=== PATIENT | female | born 1990 | race Caucasian/White ===

== ENCOUNTER 2025-03-22 08:33 | Emergency (ER) | payer MEDICAID ==
[~2025-03-22] VITALS: Ht 165.1 cm; Wt 109.2 kg
[~2025-03-22 08:33] MED LIST: PREN-96 PO
[2025-03-22 08:35] VITALS: BP 107/61; PULSE 89; RESP 18; TEMP 98.8; O2SAT 98
--- NOTE | 2025-03-22 09:17 | ED.PDOC ---
History of Present Illness HPI Comments 34-year-old female presents to the ER with spouse and no prior medical history associated with a chief complaint of abnormal labs. Patient reports on going is [facility] yesterday for facial swelling, lightheadedness, headache, N/V, and a recent syncope last week for which all subsided. Patient was informed by the blood donation,earlier today the her hemoglobin was 9.0 and to go to the ER. Denies chills, fever, N/V/D, SOB, CP. No other associated symptoms, modifiers, recent injuries or sick contacts present at this time. Chief Complaint: Abnormal LAB's Time Seen by MD: 09:15 Primary Care Provider: EZEKIEL Garcia Notes: Nurses Notes, Medications, Allergies Allergies: Coded Allergies: NO KNOWN ALLERGIES (Unverified , 10/21/09) Home Meds Reported Medications Vit W/ Ferrous Fumara ( One Daily) Daily Tab, 1 TAB PO DAILY, #90 TAB 3 Refills 02/18/17 Information Source: Patient, Spouse Mode of Arrival: Ambulatory Severity: Moderate Timing: Days Duration: Since onset, Days Prehospital treatment: None Past Medical History PAST MEDICAL HISTORY: Denies Surgical History: Denies all surgeries VISUAL MERCHANDISING MANAGER History: No Pertinent VISUAL MERCHANDISING MANAGER History Family History Family History: Reviewed,noncontributory to illness, Unknown Social History Smoker: Non-Smoker Alcohol: Denies ETOH Use Drugs: Denies Drug Use Lives In: Home Constitutional: reports: others (Patient came in due from her hemoglobin being at 9.0); denies: chills, diaphoresis, fatigue, fever, malaise, sweats, weakness EENTM: denies: blurred vision, double vision, ear bleeding, ear discharge, ear drainage, ear pain, ear ringing, eye pain, eye redness, hearing loss, mouth pain, mouth swelling, nasal discharge, nose bleeding, nose congestion, nose pain, photophobia, tearing, throat pain, throat swelling, voice changes, others Respiratory: denies: cough, hemoptysis, orthopnea, SOB at rest, shortness of breath, SOB with excertion, stridor, wheezing, others Cardiovascular: denies: chest pain, dizzy spells, diaphoresis, Dyspnea on exertion, edema, irregular heart beat, left arm pain, lightheadedness, palpitations, PND, syncope, others Gastrointestinal: denies: abdomen distended, abdominal pain, blood streaked bowels, constipated, diarrhea, dysphagia, difficulty swallowing, hematemesis, melena, nausea, poor appetite, poor fluid intake, rectal bleeding, rectal pain, vomiting, others Genitourinary: denies: abnormal vagina bleeding, burning, dyspareunia, dysuria, flank pain, frequency, hematuria, incontinence, pain, , vagina discharge, urgency, others Neurological: denies: dizziness, fainting, headache, left sided numbness, left sided weakness, numbness, paresthesia, pre-existing deficit, right sided numbness, right sided weakness, seizure, speech problems, tingling, tremors, weakness, others Musculoskeletal: denies: back pain, gout, joint pain, joint swelling, muscle pain, muscle stiffness, neck pain, others Integumetry: denies: bruises, change in color, change in hair/nails, dryness, laceration, lesions, lumps, rash, wounds, others Allergic/Immunocompromised: denies: Difficulty Healing, Frequent Infections, Hives, Itching, others Hematologic/Lymphatic: denies: anemia, blood clots, easy bleeding, easy bruising, swollen glands, others Endocrine: denies: excessive hunger, excessive sweating, excessive thirst, excessive urination, flushing, intolerance to cold, intolerance to heat, unexplained weight gain, unexplained weight loss, others Psychiatric: denies: anxiety, bipolar disorder, depression, hopeless, panic disorder, schizophrenia, sleepless, suicidal, others All Other Systems: Reviewed and Negative Physical Exam General Appearance: No Apparent Distress, Normal HEENT: Normal ENT Inspection, Pharynx Normal, TMs Normal Neck: Full Range of Motion, Non-Tender, Normal, Normal Inspection Respiratory: Chest Non-Tender, Lungs Clear, No Accessory Muscle Use, No Respiratory Distress, Normal Breath Sounds Cardiovascular: No Edema, No JVD, No Murmur, No Gallop, Normal Peripheral Pulses, Regular Rate/Rhythm Breast Exam: Deferred Gastrointestinal: No Organomegaly, Non Tender, No Pulsatile Mass, Normal Bowel Sounds, Soft Genitalia: Deferred Pelvic: Deferred Rectal: Deferred Extremities: No calf tenderness, Normal capillary refill, Normal inspection, Normal range of motion, Non-tender, No pedal edema Musculoskeletal : Apperance: Normal Neurologic: Alert, ribbon cutter II-XII nml as Tested, No Motor Deficits, Normal Affect, Normal Mood, No Sensory Deficits Cerebellar Function: Normal Reflexes: Normal Skin: Dry, Normal Color, Warm Lymphatic: No Adenopathy Was a procedure done? Was a procedure done?: No Differential Dx Considerations may include: Abnormal labs, elecotrolyte abnormality X-Ray, Labs, Meds, VS Vital Signs Date Time Temp Pulse Resp B/P (MAP) Pulse Ox O2 Delivery O2 Flow Rate FiO2 03/22/25 08:35 98.8 89 18 107/61 98 98.8 Lab Test 03/22/25 10:19 03/22/25 09:05 Range/Units Troponin I High Sensitivity < 3 L < 3 L </=34 ng/L White Blood Count 13.6 H 4.4-10.8 10^3/uL Red Blood Count 3.58 L 4.0-5.20 10^6/uL Hemoglobin 10.6 L 12.2-16.2 g/dL Hematocrit 31.7 L 36.0-46.0 % Mean Corpuscular Volume 88.7 80.0-100.0 fL Mean Corpuscular Hemoglobin 29.6 28.0-32.0 pg Mean Corpuscular Hemoglobin Concent 33.4 32.0-36.0 g/dL Red Cell Distribution Width 13.6 11.8-14.3 % Platelet Count 231 140-450 10^3/uL Mean Platelet Volume 8.5 6.9-10.8 fL Neutrophils (%) (Auto) 83.4 H 37.0-80.0 % Lymphocytes (%) (Auto) 10.3 10.0-50.0 % Monocytes (%) (Auto) 6.1 0.0-12.0 % Eosinophils (%) (Auto) 0.1 0.0-7.0 % Basophils (%) (Auto) 0.1 0.0-2.0 % Neutrophils # (Auto) 11.4 H 1.6-8.6 10 ^3/uL Lymphocytes # (Auto) 1.4 0.4-5.4 10 ^3/uL Monocytes # (Auto) 0.8 0-1.3 10 ^3/uL Eosinophils # (Auto) 0 0-0.8 10 ^3/uL Basophils # (Auto) 0 0-0.2 10 ^3/uL Nucleated Red Blood Cells 0.1 % Sodium Level 142 136-145 mmol/L Potassium Level 4.4 3.5-5.1 mmol/L Chloride Level 108 H 98-107 mmol/L Carbon Dioxide Level 26 20-31 mmol/L Anion Gap 8 5-15 Blood Urea Nitrogen 17 9-23 mg/dL Creatinine 0.84 0.550-1.02 mg/dL Glomerular Filtration Rate Calc 92 >90 mL/min BUN/Creatinine Ratio 20.2 H 10.0-20.0 Serum Glucose 115 H 74-106 mg/dL Calcium Level 9.0 8.7-10.4 mg/dL Time of 1ST Reevaluation: 09:45 Reevaluation 1ST: Unchanged Patient Education/Counseling: Diagnosis, Treatment, Prognosis Family Education/Counseling: No Family Present SEPSIS Sepsis Screen Date sepsis recognized/suspect: Mar 22, 2025 Time Sepsis recognized/suspect: 834 Recent Procedure: No On Antibiotic Therapy: No Respiratory Rate >20: No Heart Rate >90: No Temp<36 C (96.8 F) or >38.3 C: No SBP <90 or MAP <65 mmHG: No New Acute Mental Status Change: No Is the patient on CPAP, BIPAP,: No Physician Orders Urinalysis (03/22/25 08:47) Troponin-I Hs (03/22/25 11:47) Vital Signs Date Time Temp Pulse Resp B/P (MAP) Pulse Ox O2 Delivery O2 Flow Rate FiO2 03/22/25 08:35 98.8 89 18 107/61 98 98.8 Laboratory Tests Test 03/22/25 09:05 White Blood Count 13.6 10^3/uL (4.4-10.8) H Departure 1 Departure Time of Disposition: 11:47 (Patient with likely normal labs. PAtient ama prior to having results.) Impression: Primary Impression: Abnormal laboratory test Disposition: 07 LEFT AGAINST MEDICAL ADVICE Condition: Stable Critical Care Note Critical Care Time?: No Stability Stability form required: No I personally scribed for ELVIS PÉREZ MD ([email or web address]) on 03/22/25 at 09:17. Electronically submitted by David Griffith ([email or web address]). ELVIS PÉREZ MD Mar 22, 2025 09:17
[2025-03-22 09:25] LABS: Hematocrit 31.7 % (36.0-46.0); Hemoglobin 10.6 g/dL (12.2-16.2); Mean Corpuscular Hemoglobin 29.6 pg (28.0-32.0); Mean Corpuscular Volume 88.7 fL (80.0-100.0); Nucleated Red Blood Cells % 0.1 %
[2025-03-22 09:45] LABS: Potassium 4.4 mmol/L (3.5-5.1); Sodium 142 mmol/L (136-145)
[2025-03-22 09:46] LABS: Anion Gap 8 (5-15); Calcium 9.0 mg/dL (8.7-10.4); Carbon Dioxide 26 mmol/L (20-31)
[2025-03-22 09:50] LABS: Chloride 108 mmol/L (98-107)
[2025-03-22 09:51] LABS: BUN/Creatinine Ratio 20.2 (10.0-20.0); Blood Urea Nitrogen 17 mg/dL (9-23)
[2025-03-22 09:52] LABS: Glucose 115 mg/dL (74-106)
== END 2025-03-22 11:43 | disposition left against medical advice (07) ==
LOC: ER 08:33
DX: R79.9 Abnormal finding of blood chemistry, unspecified (principal); R55 Syncope and collapse; R22.0 Localized swelling, mass and lump, head
CPT/HCPCS: 36415; 80048; 84484; 85025

== ENCOUNTER 2025-06-20 23:45 | Emergency (ER) | payer MEDICAID ==
[~2025-06-20] VITALS: Ht 165.1 cm; Wt 109.7 kg
--- NOTE | 2025-06-21 01:37 | ED.PDOC ---
History of Present Illness HPI Comments Patient is a 34-year-old female with past medical history of recurrent pancreatitis x2 who comes in due to facial swelling that has been ongoing for the past2 days and progressively worsening. According to the patient,2 days ago she noticed multiple facial puncture wounds 1 on the left cheek, on the chin and 1 on the right cheek, which progressively worsened and prompted this visit to the ER. Patient states the puncture wound on the right side went on to cause preseptal swelling, tender to palpation, erythematous. Denies having similar symptoms in the past. Notes that she completed2 weeks' course of amoxicillin today for a tooth infection. Patient's own insight is it might have been an insect bite? . Denies any pain with moving her eye, denies any visual changes. No abnormal drainage from the eye. Review of systems is all negative. Chief Complaint: Face pain Time Seen by MD: 00:55 Primary Care Provider: EZEKIEL Allergies: Coded Allergies: NO KNOWN ALLERGIES (Unverified , 10/21/09) Home Meds Active Scripts Clindamycin Hcl (Clindamycin Hcl) 300 Mg Cap, 300 MG PO QID for 7 Days, #28 CAP Prov:SHARON MORFIN RESIDENT 06/21/25 Reported Medications Vit W/ Ferrous Fumara ( One Daily) Daily Tab, 1 TAB PO DAILY, #90 TAB 3 Refills 02/18/17 Mode of Arrival: Ambulatory Severity: Mild Timing: Days Duration: Since onset Past Medical History PAST MEDICAL HISTORY: Denies Past Medical History (Contd): Pancreatitis Surgical History: Denies all surgeries Surgical History (Cont'd) Denies TELEGRAPH REPEATER TECHNICIAN History: No Pertinent TELEGRAPH REPEATER TECHNICIAN History Family History Family History: Reviewed,noncontributory to illness, Unknown Social History Smoker: Non-Smoker Alcohol: Denies ETOH Use Drugs: Denies Drug Use Lives In: Home Constitutional: denies: chills, diaphoresis, fatigue, fever, malaise, sweats, weakness, others EENTM: denies: blurred vision, double vision, ear bleeding, ear discharge, ear drainage, ear pain, ear ringing, eye pain, eye redness, hearing loss, mouth pain, mouth swelling, nasal discharge, nose bleeding, nose congestion, nose pain, photophobia, tearing, throat pain, throat swelling, voice changes, others Respiratory: denies: cough, hemoptysis, orthopnea, SOB at rest, shortness of breath, SOB with excertion, stridor, wheezing, others Cardiovascular: denies: chest pain, dizzy spells, diaphoresis, Dyspnea on exertion, edema, irregular heart beat, left arm pain, lightheadedness, palpitations, PND, syncope, others Gastrointestinal: denies: abdomen distended, abdominal pain, blood streaked bowels, constipated, diarrhea, dysphagia, difficulty swallowing, hematemesis, melena, nausea, poor appetite, poor fluid intake, rectal bleeding, rectal pain, vomiting, others Genitourinary: denies: abnormal vagina bleeding, burning, dyspareunia, dysuria, flank pain, frequency, hematuria, incontinence, pain, , vagina discharge, urgency, others Neurological: denies: dizziness, fainting, headache, left sided numbness, left sided weakness, numbness, paresthesia, pre-existing deficit, right sided numbness, right sided weakness, seizure, speech problems, tingling, tremors, weakness, others Musculoskeletal: denies: back pain, gout, joint pain, joint swelling, muscle pain, muscle stiffness, neck pain, others Integumetry: denies: bruises, change in color, change in hair/nails, dryness, laceration, lesions, lumps, rash, wounds, others Allergic/Immunocompromised: denies: Difficulty Healing, Frequent Infections, Hives, Itching, others Hematologic/Lymphatic: denies: anemia, blood clots, easy bleeding, easy bruising, swollen glands, others Endocrine: denies: excessive hunger, excessive sweating, excessive thirst, excessive urination, flushing, intolerance to cold, intolerance to heat, unexplained weight gain, unexplained weight loss, others Psychiatric: denies: anxiety, bipolar disorder, depression, hopeless, panic disorder, schizophrenia, sleepless, suicidal, others Physical Exam General Appearance: No Apparent Distress HEENT: Eye Lid (L) (Swollen, erythematous, nontender. No visual changes.), Normal ENT Inspection, PERRL/EOMI (No pain on extraocular movement), Other ( Cm scabbed wound on the left cheek. Deep seated on removed 0.5 cm wound on the chin and right cheek.) Neck: Full Range of Motion, Non-Tender, Normal Inspection Respiratory: Chest Non-Tender, Lungs Clear, No Accessory Muscle Use Cardiovascular: No JVD, No Murmur, No Gallop, Normal Peripheral Pulses, Regular Rate/Rhythm Breast Exam: Deferred Gastrointestinal: Non Tender, No Pulsatile Mass, Normal Bowel Sounds Genitalia: Deferred Pelvic: Deferred Rectal: Rectal Exam not done Extremities: No calf tenderness, Normal inspection, Normal range of motion, Non-tender, No pedal edema Neurologic: Alert, No Motor Deficits, No Sensory Deficits Cerebellar Function: Normal Reflexes: NOT DONE Skin: Dry, Normal Color Peripheral Pulses: 2+ dorsalis pedis (R), 2+ dorsalis pedis (L) Lymphatic: NOT DONE Was a procedure done? Was a procedure done?: No Differential Dx Considerations may include: Facial cellulitis X-Ray, Labs, Meds, VS Vital Signs Date Time Temp Pulse Resp B/P (MAP) Pulse Ox O2 Delivery O2 Flow Rate FiO2 06/21/25 01:54 98.0 82 16 124/72 (89) 100 98.0 06/20/25 23:47 97.8 95 18 139/69 100 97.8 Current Medications Medications (Trade) Dose Ordered Sig/Isabell Route Start Time Stop Time Status Last Admin Clindamycin HCl (Cleocin Capsule) 300 mg ONCE ONCE PO 06/21/25 01:45 06/21/25 01:46 DC 06/21/25 03:15 Time of 1ST Reevaluation: 01:40 Reevaluation 1ST: Improved Patient Education/Counseling: Diagnosis, Treatment, Prognosis, Need For Follow Up Family Education/Counseling: Diagnosis, Treatment, Prognosis, Need For Follow Up SEPSIS Sepsis Screen Date sepsis recognized/suspect: Jun 20, 2025 Time Sepsis recognized/suspect: 2351 Recent Procedure: No On Antibiotic Therapy: Yes Respiratory Rate >20: No Heart Rate >90: No Temp<36 C (96.8 F) or >38.3 C: No SBP <90 or MAP <65 mmHG: No New Acute Mental Status Change: No Is the patient on CPAP, BIPAP,: No Vital Signs Date Time Temp Pulse Resp B/P (MAP) Pulse Ox O2 Delivery O2 Flow Rate FiO2 06/21/25 01:54 98.0 82 16 124/72 (89) 100 98.0 06/20/25 23:47 97.8 95 18 139/69 100 97.8 Medications Medications Dose Ordered Sig/Isabell Route Start Time Stop Time Status Last Admin Dose Admin Clindamycin HCl 300 mg ONCE ONCE PO 06/21/25 01:45 06/21/25 01:46 DC 06/21/25 03:15 Departure 1 Departure Time of Disposition: 02:00 (Patient presenting with facial swelling consistent with uncomplicated cellulitis. Patient has normal eye examination, no pain with extraocular movement, no findings to suggest hormonal cellulitis. No reports of shortness of breath, no tongue or leg swelling, no findings concerning for airway compromise. Vital stable, exam reassuring and patient tolerating p.o.. Neuro ophthalmic exam intact. Patient was prescribed clindamycin 300 mg q.i.d. for7 days, 1st dose of 200 mg p.o. clindamycin was given in the ER. Strict return precautions reviewed, including worsening swelling, fever, vision changes, eye pain with movement, difficulty breathing or failure to improve. Patient verbalized understanding agrees with the discharge plan.) Impression: Primary Impression: Facial cellulitis Additional Impression: Acne comedone Disposition: HOME / SELF CARE / HOMELESS Condition: Stable e-Prescriptions Clindamycin Hcl (Clindamycin Hcl) 300 Mg Cap 300 MG PO QID for 7 Days, #28 CAP Prov: SHARON MORFIN RESIDENT 06/21/25 Critical Care Note Critical Care Time?: No Stability Stability form required: SHARON Ramirez Jun 21, 2025 01:37 CONNER RUSSO MD Jun 21, 2025 04:30
[2025-06-21] MEDS ORDERED: CLIN1CAP70 PO (01:40)
[2025-06-21 01:54] VITALS: BP 124/72; PULSE 82; RESP 16; TEMP 98; O2SAT 100
[2025-06-21] MEDS: CLINDAMYCIN HCL 150 MG CAP PO ONE (03:15)
== END 2025-06-21 03:14 | disposition home or self-care (01) ==
LOC: ER 23:45
DX: L03.211 Cellulitis of face (principal); L70.0 Acne vulgaris; Z79.899 Other long term (current) drug therapy

== ENCOUNTER 2025-06-22 09:44 | Inpatient (IN) | payer MEDICAID ==
[~2025-06-22] VITALS: Ht 165.1 cm; Wt 114.1 kg
[~2025-06-22 09:44] MED LIST changes: +CLIN1CAP70 PO
[2025-06-22 11:05] LABS: Hematocrit 32.3 % (36.0-46.0); Hemoglobin 10.9 g/dL (12.2-16.2); Mean Corpuscular Hemoglobin 28.8 pg (28.0-32.0); Mean Corpuscular Volume 85.9 fL (80.0-100.0); Nucleated Red Blood Cells % 0.0 %
--- NOTE | 2025-06-22 11:05 | ED.PDOC ---
Eye-HPI HPI Comments 34 y.o female presents for an evaluation of bilateral eye swelling (worse on the left eye) x 06/14/25 s/p being bitten by a spider (left facial side). Patient was seen at this facility recently, rx clindamycin but still presents with worsening symptoms with swelling now localized to whole face and redness with oozing from bite site. Previous to bite, she was on antibiotic for dental infection. Patient denies any pain with extraocular movements, patient denies any blurry vision or vision changes. Chief Complaint: Eye Problem Time Seen by MD: 13:22 Primary Care Provider: EZEKIEL Reviewed Notes: Nurses Notes, Medications, Allergies Allergies: Coded Allergies: NO KNOWN ALLERGIES (Unverified , 10/21/09) Home Meds Active Scripts Clindamycin Hcl (Clindamycin Hcl) 300 Mg Cap, 300 MG PO QID for 7 Days, #28 CAP Prov:SHARON MORFIN RESIDENT 06/21/25 Reported Medications Vit W/ Ferrous Fumara ( One Daily) Daily Tab, 1 TAB PO DAILY, #90 TAB 3 Refills 02/18/17 Information Source: Patient Mode of Arrival: EMS Duration: Since onset Quality: Red Past Medical History PAST MEDICAL HISTORY: Denies Surgical History: Denies all surgeries [employer]INDING [employer]EL INSPECTOR History: No Pertinent GRINDING WHEEL INSPECTOR History Family History Family History: Reviewed,noncontributory to illness, Unknown Social History Smoker: Non-Smoker Alcohol: Denies ETOH Use Drugs: Denies Drug Use Lives In: Home Constitutional: denies: chills, diaphoresis, fatigue, fever, malaise, sweats, weakness, others EENTM: reports: eye pain; denies: blurred vision, double vision, ear bleeding, ear discharge, ear drainage, ear pain, ear ringing, eye redness, hearing loss, mouth pain, mouth swelling, nasal discharge, nose bleeding, nose congestion, nose pain, photophobia, tearing, throat pain, throat swelling, voice changes, others Respiratory: denies: cough, hemoptysis, orthopnea, SOB at rest, shortness of breath, SOB with excertion, stridor, wheezing, others Cardiovascular: denies: chest pain, dizzy spells, diaphoresis, Dyspnea on exertion, edema, irregular heart beat, left arm pain, lightheadedness, palpitations, PND, syncope, others Gastrointestinal: denies: abdomen distended, abdominal pain, blood streaked bowels, constipated, diarrhea, dysphagia, difficulty swallowing, hematemesis, melena, nausea, poor appetite, poor fluid intake, rectal bleeding, rectal pain, vomiting, others Genitourinary: denies: abnormal vagina bleeding, burning, dyspareunia, dysuria, flank pain, frequency, hematuria, incontinence, pain, , vagina discharge, urgency, others Neurological: denies: dizziness, fainting, headache, left sided numbness, left sided weakness, numbness, paresthesia, pre-existing deficit, right sided numbness, right sided weakness, seizure, speech problems, tingling, tremors, weakness, others Musculoskeletal: denies: back pain, gout, joint pain, joint swelling, muscle pain, muscle stiffness, neck pain, others Integumetry: denies: bruises, change in color, change in hair/nails, dryness, laceration, lesions, lumps, rash, wounds, others Allergic/Immunocompromised: denies: Difficulty Healing, Frequent Infections, Hives, Itching, others Hematologic/Lymphatic: denies: anemia, blood clots, easy bleeding, easy bruising, swollen glands, others Endocrine: denies: excessive hunger, excessive sweating, excessive thirst, excessive urination, flushing, intolerance to cold, intolerance to heat, unexplained weight gain, unexplained weight loss, others Psychiatric: denies: anxiety, bipolar disorder, depression, hopeless, panic disorder, schizophrenia, sleepless, suicidal, others All Other Systems: Reviewed and Negative Physical Exam General Appearance: Mild Distress, Normal HEENT: Other (Obvious swelling diffusely to bilateral periorbital region worse to the left eye with significant erythema surrounding the entire periorbital region of the left eye. Lateral to left eye there is proximally 5 cm x 2 cm area of erythema and hardened fluctuation with small amounts of purulent discharge that is oozing. No pain with extraocular movements. ) Neck: Full Range of Motion, Non-Tender, Normal, Normal Inspection Respiratory: Chest Non-Tender, Lungs Clear, No Accessory Muscle Use, No Respiratory Distress, Normal Breath Sounds Cardiovascular: No Edema, No JVD, No Murmur, No Gallop, Normal Peripheral Pulses, Regular Rate/Rhythm Breast Exam: Deferred Gastrointestinal: No Organomegaly, Non Tender, No Pulsatile Mass, Normal Bowel Sounds, Soft Genitalia: Deferred Pelvic: Deferred Rectal: Deferred Extremities: No calf tenderness, Normal capillary refill, Normal inspection, Normal range of motion, Non-tender, No pedal edema Musculoskeletal : Apperance: Normal Neurologic: Alert, buttonhole tacker II-XII nml as Tested, No Motor Deficits, Normal Affect, Normal Mood, No Sensory Deficits Cerebellar Function: Normal Reflexes: Normal Skin: Dry, Normal Color, Warm Lymphatic: No Adenopathy Was a procedure done? Was a procedure done?: No EENT DIFF Eye: Hordeolum (stye), Orbital Cellulits, Periorbital Cellulits Other Differential Diagnosis Abscess X-Ray, Labs, Meds, VS Vital Signs Date Time Temp Pulse Resp B/P (MAP) Pulse Ox O2 Delivery O2 Flow Rate FiO2 06/22/25 16:18 98.0 82 16 97/56 (70) 100 98.0 06/22/25 14:20 98.4 84 17 110/75 100 98.4 06/22/25 13:50 97.6 77 16 100/60 (73) 100 97.6 Lab Test 06/22/25 13:21 06/22/25 10:35 Range/Units Urine Test Negative Negative White Blood Count 9.6 4.4-10.8 10^3/uL Red Blood Count 3.77 L 4.0-5.20 10^6/uL Hemoglobin 10.9 L 12.2-16.2 g/dL Hematocrit 32.3 L 36.0-46.0 % Mean Corpuscular Volume 85.9 80.0-100.0 fL Mean Corpuscular Hemoglobin 28.8 28.0-32.0 pg Mean Corpuscular Hemoglobin Concent 33.6 32.0-36.0 g/dL Red Cell Distribution Width 13.9 11.8-14.3 % Platelet Count 196 140-450 10^3/uL Mean Platelet Volume 8.3 6.9-10.8 fL Neutrophils (%) (Auto) 67.3 37.0-80.0 % Lymphocytes (%) (Auto) 13.9 10.0-50.0 % Monocytes (%) (Auto) 10.8 0.0-12.0 % Eosinophils (%) (Auto) 7.8 H 0.0-7.0 % Basophils (%) (Auto) 0.2 0.0-2.0 % Neutrophils # (Auto) 6.5 1.6-8.6 10 ^3/uL Lymphocytes # (Auto) 1.3 0.4-5.4 10 ^3/uL Monocytes # (Auto) 1.0 0-1.3 10 ^3/uL Eosinophils # (Auto) 0.7 0-0.8 10 ^3/uL Basophils # (Auto) 0 0-0.2 10 ^3/uL Nucleated Red Blood Cells 0.0 % Sodium Level 142 136-145 mmol/L Potassium Level 4.0 3.5-5.1 mmol/L Chloride Level 107 98-107 mmol/L Carbon Dioxide Level 26 20-31 mmol/L Anion Gap 9 5-15 Blood Urea Nitrogen 12 9-23 mg/dL Creatinine 1.07 H 0.550-1.02 mg/dL Glomerular Filtration Rate Calc 69 >90 mL/min BUN/Creatinine Ratio 11.2 10.0-20.0 Serum Glucose 90 74-106 mg/dL Lactic Acid Level 1.0 0.4-2.0 mmol/L Calcium Level 9.1 8.7-10.4 mg/dL Total Bilirubin 1.0 0.2-1.0 mg/dL Aspartate Amino Transferase (AST) 21 13-40 U/L Alanine Aminotransferase (ALT) 20 7-40 U/L Alkaline Phosphatase 58 46-116 U/L Total Protein 6.6 5.7-8.2 g/dL Albumin 3.9 3.2-4.8 g/dL Current Medications Medications (Trade) Dose Ordered Sig/Isabell Route Start Time Stop Time Status Last Admin Ampicillin Sodium/ Sulbactam Sodium 3 gm/Sodium Chloride 100 ml @ 100 mls/hr Q6H IV 06/22/25 13:30 06/22/25 14:23 1. Significant left preseptal to left cheek soft tissue swelling with overlying skin thickening. 2. Small focal area of hypoattenuation extending from the left skin into the left maxillary fat and imaging findings concerning for soft tissue infection which may be dermal in origin. 3. No CT evidence of an acute facial fracture. 4. Periapical dental disease. 34-year-old female presents here with worsening eye swelling face swelling to the face. Patient states she had a spider bite proximally a week ago. Since then she developed another lesion to her left lateral face. She was seen here 2 days ago and was prescribed clindamycin. She states she has been taking clindamycin as prescribed but this morning she woke up with worsening swelling to her eyes and worsening redness. Despite being on clindamycin. Patient declines any vision changes no blurry vision. Doubt orbital cellulitis at this time. However there was significant periorbital cellulitis to bilateral eyes worse in the left. I have ordered a CT maxillofacial with IV contrast for evaluation for possible abscess. At this time CBC and BMP are unremarkable. Lactic acid is within normal limits. She has no WBC count. Blood cultures has been done. Given she has failed outpatient therapy, I have started her on Unasyn IV. I am hospitalist team has been contacted for admission. CT does not demonstrate a clear abscess. Does demonstrates significant left preseptal swelling. Hospitalist team has been contacted. Time of 1ST Reevaluation: 13:33 Reevaluation 1ST: Unchanged Patient Education/Counseling: Diagnosis, Treatment, Prognosis Family Education/Counseling: No Family Present SEPSIS Sepsis Screen Physician Orders Blood Culture (06/22/25 10:02) Maxillofacial With (06/22/25 10:07) Ampicillin & Sulbactam Sodium (Unasyn) (06/22/25 13:30) Vital Signs Date Time Temp Pulse Resp B/P (MAP) Pulse Ox O2 Delivery O2 Flow Rate FiO2 06/22/25 16:18 98.0 82 16 97/56 (70) 100 98.0 06/22/25 14:20 98.4 84 17 110/75 100 98.4 06/22/25 13:50 97.6 77 16 100/60 (73) 100 97.6 Laboratory Tests Test 06/22/25 10:35 Lactic Acid Level 1.0 mmol/L (0.4-2.0) White Blood Count 9.6 10^3/uL (4.4-10.8) Medications Medications Dose Ordered Sig/Isabell Route Start Time Stop Time Status Last Admin Dose Admin Ampicillin Sodium/ Sulbactam Sodium 3 gm/Sodium Chloride 100 ml @ 100 mls/hr Q6H IV 06/22/25 13:30 06/22/25 14:23 Departure 1 Departure Time of Disposition: 13:31 Impression: Primary Impression: Cellulitis of periorbital region of both eyes Disposition: ADMITTED INPATIENT Condition: Fair Critical Care Note Critical Care Time?: No Stability Stability form required: No I personally scribed for JOELLE CERVANTES MD ([email or web address]) on 06/22/25 at 11:05. Electronically submitted by Raquel Lemons ([facility]). I personally scribed for JOELLE CERVANTES MD ([email or web address]) on 06/22/25 at 13:28. Electronically submitted by Raquel Lemons ([facility]). JOELLE CERVANTES MD Jun 22, 2025 11:05
[2025-06-22 11:22] LABS: Alanine Aminotransferase 20 U/L (7-40); Albumin 3.9 g/dL (3.2-4.8); Alkaline Phosphatase 58 U/L (46-116); Anion Gap 9 (5-15); BUN/Creatinine Ratio 11.2 (10.0-20.0); Bilirubin, Total 1.0 mg/dL (0.2-1.0); Blood Urea Nitrogen 12 mg/dL (9-23); Calcium 9.1 mg/dL (8.7-10.4); Carbon Dioxide 26 mmol/L (20-31); Chloride 107 mmol/L (98-107); Glucose 90 mg/dL (74-106); Potassium 4.0 mmol/L (3.5-5.1); Sodium 142 mmol/L (136-145); Total Protein 6.6 g/dL (5.7-8.2)
[2025-06-22] MEDS: AMPICILLIN & SULBACTAM SODIUM 3 GM in SODIUM CHL 0.9% 100 ML IV SCH (14:23)
--- NOTE | 2025-06-22 16:36 | DVH ---
CT MAXILLOFACIAL WITH INDICATION: FACIAL SWELLING TECHNIQUE: Noncontrast axial images of the facial bones are then obtained along with coronal and sagittal reformatted images. All CT scans at this facility use dose modulation, iterative reconstruction, and/or weight based dosing when appropriate to reduce radiation dose to as low as reasonably achievable. COMPARISON: None FINDINGS: FACIAL BONES: The nasal, lacrimal, inferior nasal mitra, and palatine bones are intact. The vomer and perpendicular plate of the ethmoid are intact. The zygomatic bones are intact. The maxilla is intact. The mandible is intact. Significant left preseptal to left cheek soft tissue swelling with overlying skin thickening. Small focal area of hypoattenuation extending from the left skin into the left maxillary fat and imaging findings concerning for soft tissue infection which may be dermal in origin. Subsequent bilateral subcentimeter reactive cervical chain lymphadenopathy. PARANASAL SINUSES: The bony margins of the paranasal sinuses are intact. Mild bilateral maxillary sinus mucosal thickening. ORBITS: The right and left globes are intact. The bony margins of the orbits are intact. The extraconal space is intact. The extraocular muscles are symmetric. The intraconal space including the optic canal and nerve are symmetric. OTHER: There are multiple periapical dental lucencies compatible with periapical odontal disease. IMPRESSION: 1. Significant left preseptal to left cheek soft tissue swelling with overlying skin thickening. 2. Small focal area of hypoattenuation extending from the left skin into the left maxillary fat and imaging findings concerning for soft tissue infection which may be dermal in origin. 3. No CT evidence of an acute facial fracture. 4. Periapical dental disease.
[2025-06-22] MEDS: IOHEXOL 300 MG/ML 100ML BOTTLE IJ ONE (20:14)
--- NOTE | 2025-06-22 21:23 | DVHHP2 ---
History of Present Illness Reason for Visit: Cellulitis of periorbital region of both eyes History of Present Illness The patient is a 34-year-old female who denies past medical history presented to [facility] ED for evaluation of bilateral eye swelling left worse than right. Patient reports that she was bitten by spider to the left side of her face, now swollen, redness with oozing from the bite site. Patient was seen initially at this facility and was discharged home with antibiotic regimen clindamycin with no relief. Patient was seen and evaluated in the ED, laboratory data shows WBC 9.6, hemoglobin 10.9, hematocrit 32.3, platelets 196, sodium 142, potassium 4.0, BUN 12, creatinine 1.07, GFR 90, glucose 90, calcium 9.1, lactic acid 1.0, blood pressure 110/71, heart rate 85, temperature 98.6 F, O2 saturation 97% on room air. Maxillofacial CT revealing significant left preseptal to left cheek soft tissue swelling with overlying skin thickening, small focal area of hyperattenuation extending from the left skin into the left maxillary fat and imaging findings concerning for soft tissue infection which may be dermal in origin. Patient was started on IV antibiotic regimen Zosyn, please see medication orders section in the computer. On my assessment, patient denied chest pain, no dizziness, headache, diaphoresis, shortness of breaths, no diarrhea, nausea, vomiting, fever, no chills. Patient was admitted for further evaluation and medical management. Past Medical History Denies past medical history Past Surgical History Denies all surgeries Family History Reviewed, noncontributory to the management of this case. Past Social History The patient lives at home, denies smoking, alcohol or illicit drugs abuse. Review of Systems Constitutional: Yes: Weakness; No: Fever, Chills, Sweats, Malaise, Other Eyes: No: Pain, Vision change, Conjunctivae inflammation, Eyelid inflammation, Other, Redness ENT: Other (Left cheek lesion); No: Ear pain, Ear discharge, Nose pain, Nose discharge, Nose congestion, Mouth pain, Mouth swelling, Throat pain, Throat swelling Respiratory: No: Cough, Dry, Shortness of breath, SOB with excertion, Wheezing, Hemoptysis, Pleuritic Pain, Sputum, Wheezing, Other Cardiovascular: No: Chest Pain, Palpitations, Orthopnea, Paroxysmal Noc. Dyspnea, Edema, Lt Headedness, Other Gastrointestinal: No: Nausea, Vomiting, Abdominal Pain, Diarrhea, Constipation, Melena, Hematochezia, Other Genitourinary: No Dysuria, No Frequency, No Incontinence, No Hematuria, No Retention, No Other Musculoskeletal: No: other, neck pain, shoulder pain, arm pain, back pain, hand pain, leg pain, foot pain Skin: Lesions (Left cheek); No: Rash, Jaundice, Bruising, Other Neurological: No: Weakness, Numbness, Incoordination, Change in speech, Confusion, Seizures, Other Allergies: Coded Allergies: NO KNOWN ALLERGIES (Unverified , 10/21/09) Medications Current Medications Medications Dose Ordered Sig/Isabell Route Start Time Stop Time Status Last Admin Dose Admin Ampicillin Sodium/ Sulbactam Sodium 3 gm/Sodium Chloride 100 ml @ 100 mls/hr Q6H IV 06/22/25 13:30 06/22/25 14:23 100 MLS/HR Exam Vital Signs Vital Signs Date Time Temp Pulse Resp B/P (MAP) Pulse Ox O2 Delivery O2 Flow Rate FiO2 06/22/25 19:39 98.6 85 16 110/71 (84) 99 98.6 General Appearance: Alert, Oriented X3, Cooperative, No acute distress HEENT: Atraumatic, PERRLA, EOMI, Mucous membr. moist/pink Respiratory: Normal air movement Cardiovascular: Regular rate, Normal S1, Normal S2, No murmurs Abdominal: Normal bowel sounds, Soft, No tenderness, No hepatospenomegaly, No masses Extremities: No clubbing, No cyanosis, No edema, Normal pulses, No tender ness/swelling Skin: No rashes, No significant lesion Neuro: Normal speech, Normal tone, Sensation intact, Cranial nerves 3-12 NL, Reflexes 2+, Other (Generalized weakness) Psych/Mental Status: Mental status NL, Mood NL Labs/Xrays Labs Test 06/22/25 13:21 06/22/25 10:35 Range/Units Urine Test Negative Negative White Blood Count 9.6 4.4-10.8 10^3/uL Red Blood Count 3.77 L 4.0-5.20 10^6/uL Hemoglobin 10.9 L 12.2-16.2 g/dL Hematocrit 32.3 L 36.0-46.0 % Mean Corpuscular Volume 85.9 80.0-100.0 fL Mean Corpuscular Hemoglobin 28.8 28.0-32.0 pg Mean Corpuscular Hemoglobin Concent 33.6 32.0-36.0 g/dL Red Cell Distribution Width 13.9 11.8-14.3 % Platelet Count 196 140-450 10^3/uL Mean Platelet Volume 8.3 6.9-10.8 fL Neutrophils (%) (Auto) 67.3 37.0-80.0 % Lymphocytes (%) (Auto) 13.9 10.0-50.0 % Monocytes (%) (Auto) 10.8 0.0-12.0 % Eosinophils (%) (Auto) 7.8 H 0.0-7.0 % Basophils (%) (Auto) 0.2 0.0-2.0 % Neutrophils # (Auto) 6.5 1.6-8.6 10 ^3/uL Lymphocytes # (Auto) 1.3 0.4-5.4 10 ^3/uL Monocytes # (Auto) 1.0 0-1.3 10 ^3/uL Eosinophils # (Auto) 0.7 0-0.8 10 ^3/uL Basophils # (Auto) 0 0-0.2 10 ^3/uL Nucleated Red Blood Cells 0.0 % Sodium Level 142 136-145 mmol/L Potassium Level 4.0 3.5-5.1 mmol/L Chloride Level 107 98-107 mmol/L Carbon Dioxide Level 26 20-31 mmol/L Anion Gap 9 5-15 Blood Urea Nitrogen 12 9-23 mg/dL Creatinine 1.07 H 0.550-1.02 mg/dL Glomerular Filtration Rate Calc 69 >90 mL/min BUN/Creatinine Ratio 11.2 10.0-20.0 Serum Glucose 90 74-106 mg/dL Lactic Acid Level 1.0 0.4-2.0 mmol/L Calcium Level 9.1 8.7-10.4 mg/dL Total Bilirubin 1.0 0.2-1.0 mg/dL Aspartate Amino Transferase (AST) 21 13-40 U/L Alanine Aminotransferase (ALT) 20 7-40 U/L Alkaline Phosphatase 58 46-116 U/L Total Protein 6.6 5.7-8.2 g/dL Albumin 3.9 3.2-4.8 g/dL PATIENT: VALENTINE HEDRICKELLACCT: [id number] UNIT: [id number] : 1990 LOC: ER ROOM / BED: / AGE / SEX: 34 / F ADM STATUS: REG ER SERVICE 1007 ORDERING PHYSICIAN: JOELLE CERVANTES MD PROCEDURE(s): FACIC - MAXILLOFACIAL WITH REASON: FACIAL SWELLING ORDER NUMBER(s): [id number], ACCESSION NUMBER(s): [id number] CT MAXILLOFACIAL WITH INDICATION: FACIAL SWELLING TECHNIQUE: Noncontrast axial images of the facial bones are then obtained along with coronal and sagittal reformatted images. All CT scans at this facility use dose modulation, iterative reconstruction, and/or weight based dosing when appropriate to reduce radiation dose to as low as reasonably achievable. COMPARISON: None FINDINGS: FACIAL BONES: The nasal, lacrimal, inferior nasal mitra, and palatine bones are intact. The vomer and perpendicular plate of the ethmoid are intact. The zygomatic bones are intact. The maxilla is intact. The mandible is intact. Significant left preseptal to left cheek soft tissue swelling with overlying skin thickening. Small focal area of hypoattenuation extending from the left skin into the left maxillary fat and imaging findings concerning for soft tissue infection which may be dermal in origin. Subsequent bilateral subcentimeter reactive cervical chain lymphadenopathy. PARANASAL SINUSES: The bony margins of the paranasal sinuses are intact. Mild bilateral maxillary sinus mucosal thickening. ORBITS: The right and left globes are intact. The bony margins of the orbits are intact. The extraconal space is intact. The extraocular muscles are symmetric. The intraconal space including the optic canal and nerve are symmetric. OTHER: There are multiple periapical dental lucencies compatible with periapical odontal disease. IMPRESSION: 1. Significant left preseptal to left cheek soft tissue swelling with overlying skin thickening. 2. Small focal area of hypoattenuation extending from the left skin into the left maxillary fat and imaging findings concerning for soft tissue infection which may be dermal in origin. 3. No CT evidence of an acute facial fracture. 4. Periapical dental disease. SEPSIS Sepsis Screen Date sepsis recognized/suspect: Jun 22, 2025 Time Sepsis recognized/suspect: 0945 Recent Procedure: No On Antibiotic Therapy: No Respiratory Rate >20: No Heart Rate >90: No Temp<36 C (96.8 F) or >38.3 C: No SBP <90 or MAP <65 mmHG: No New Acute Mental Status Change: No Is the patient on CPAP, BIPAP,: No Physician Orders Ampicillin & Sulbactam Sodium (Unasyn) (06/22/25 13:30) Admit (06/22/25 21:20) Allergies (06/22/25 21:20) Code Status (06/22/25 21:20) Sodium Chloride Lock (Saline Lock Ns) (06/22/25 22:00) Vital Signs Date Time Temp Pulse Resp B/P (MAP) Pulse Ox O2 Delivery O2 Flow Rate FiO2 06/22/25 19:39 98.6 85 16 110/71 (84) 99 98.6 06/22/25 16:18 98.0 82 16 97/56 (70) 100 98.0 06/22/25 14:20 98.4 84 17 110/75 100 98.4 06/22/25 13:50 97.6 77 16 100/60 (73) 100 97.6 Laboratory Tests Test 06/22/25 10:35 Lactic Acid Level 1.0 mmol/L (0.4-2.0) White Blood Count 9.6 10^3/uL (4.4-10.8) Medications Medications Dose Ordered Sig/Isabell Route Start Time Stop Time Status Last Admin Dose Admin Ampicillin Sodium/ Sulbactam Sodium 3 gm/Sodium Chloride 100 ml @ 100 mls/hr Q6H IV 06/22/25 13:30 06/22/25 14:23 100 MLS/HR Assessment/Plan Assessment/Plan Cellulitis of periorbital region of both eyes Generalized weakness Plan 1. Admit to med surge unit 2. Breathing treatment 3. Pain control management 4. IV antibiotic management 5. Management of fluids and electrolytes 6. Consultation for hospital/wound care 7. Diagnostic test maxillofacial CT 8. DVT prophylaxis-on SCDs 9. Repeat labs CBC, CMP in a.m. 10. Home medication reviewed and reconciled 11. Continue with current medical management 12. Treatment plan discussed with patient and RN. Patient verbalized understand ing. Plan discussed with: Patient, Other My Orders Orders - LEONARD GIL DNP Procedure Category Date Status Time Admit ADMIT 06/22/25 Verified 21:20 Allergies CHAD 06/22/25 Verified 21:20 Code Status CODE 06/22/25 Verified 21:20 Sodium Chloride Lock PHA 06/22/25 Verified (Saline Lock Ns) 22:00 Problem List: (1) Cellulitis of periorbital region of both eyes (2) Generalized weakness Date of Service: Jun 22, 2025 Billing Provider: LEONARD GIL DNP Common Visit Codes: [id number] INP/OBS CARE (HIGH) LEONARD GIL DNP Jun 22, 2025 21:23
[2025-06-22] MEDS ORDERED: NITROGLYCERIN 0.4 MG SL TAB SL PRN (21:30)
[2025-06-22] MEDS ORDERED: ONDANSETRON HCL 4 MG/2 ML VIAL IV PRN (21:30)
[2025-06-22] MEDS ORDERED: DOCUSATE SOD 100 MG CAP PO PRN (21:30)
[2025-06-22] MEDS ORDERED: MORPHINE SULFATE INJ 2 MG/ml SYRG IV PRN ×2 (21:30)
[2025-06-22] MEDS ORDERED: ACETAMINOPHEN 325 MG TAB PO PRN (21:30)
[2025-06-22] MEDS: SODIUM CHLOR 0.9% PF (SALINE LOCK) 10ML VIAL/SYR IV SCH (23:00)
[2025-06-22] MEDS ORDERED: PIPERACILLIN-TAZOB 2.25GM 50 ML IV ONE (23:15)
[2025-06-22] MEDS: ASCORBIC ACID 500 MG TAB PO SCH (23:29)
[2025-06-22 23:38] VITALS: BP 108/66; PULSE 80; RESP 18; TEMP 98.4; O2SAT 96
[2025-06-22] MEDS: PIPERACILLIN-TAZOB 3.375GM 100 ML IV ONE (23:48)
[2025-06-23] VITALS (7 sets, daily range): BP systolic 94–115; BP diastolic 44–68; PULSE 73–97; RESP 17–19; TEMP 97.1–98.7; O2SAT 96–98
[2025-06-23] MEDS ORDERED: ESCI1TAB37 PO (00:11)
[2025-06-23] MEDS: PIPERACILLIN-TAZOB 3.375GM 100 ML IV SCH (05:48)
[2025-06-23 07:08] LABS: Hematocrit 32.4 % (36.0-46.0); Hemoglobin 11.0 g/dL (12.2-16.2); Mean Corpuscular Hemoglobin 29.2 pg (28.0-32.0); Mean Corpuscular Volume 85.4 fL (80.0-100.0); Nucleated Red Blood Cells % 0.0 %
[2025-06-23 07:24] LABS: Alanine Aminotransferase 16 U/L (7-40); Alkaline Phosphatase 73 U/L (46-116); Anion Gap 8 (5-15); BUN/Creatinine Ratio 12.8 (10.0-20.0); Blood Urea Nitrogen 11 mg/dL (9-23); Calcium 9.4 mg/dL (8.7-10.4); Carbon Dioxide 25 mmol/L (20-31); Chloride 107 mmol/L (98-107); Potassium 4.3 mmol/L (3.5-5.1); Sodium 140 mmol/L (136-145); Total Protein 6.7 g/dL (5.7-8.2)
[2025-06-23 07:25] LABS: Albumin 3.9 g/dL (3.2-4.8); Bilirubin, Total 0.5 mg/dL (0.2-1.0)
[2025-06-23 07:27] LABS: Glucose 168 mg/dL (74-106)
[2025-06-23] MEDS: ZINC SULFATE 220mg CAP or TAB PO SCH (10:31)
[2025-06-23] MEDS: HYDROcodone-ACET 5/325MG TAB PO PRN (17:02)
[2025-06-23] MEDS: CLINDAMYCIN 600MG IV 50 ML IV SCH (21:52)
[2025-06-23] MEDS: IBUPROFEN 800 MG TAB PO ONE (23:38)
--- NOTE | 2025-06-23 23:42 | DVHPN2 ---
Reviewed: Care Plan, H&P, Labs, Medications, Previous Orders, Radiology Changes from previous H/P or p: No Changes General: Per HPI Eyes: No Pain, No Vision change, No Conjunctivae inflammation, No Eyelid inflammation, No Other, No Redness ENT: No Ear pain, No Ear discharge, No Nose pain, No Nose discharge, No Nose congestion, No Mouth pain, No Mouth swelling, No Throat pain, No Throat swelling; Other (Left cheek lesion) Cardiovascular: No Chest Pain, No Palpitations, No Orthopnea, No Paroxysmal Noc. Dyspnea, No Edema, No Lt Headedness, No Other Respiratory: No Cough, No Dry, No Shortness of breath, No SOB with excertion, No Wheezing, No Hemoptysis, No Pleuritic Pain, No Sputum, No Other Gastrointestinal: No Nausea, No Vomiting, No Abdominal Pain, No Diarrhea, No Constipation, No Melena, No Hematochezia, No Other Genitourinary: No Dysuria, No Frequency, No Incontinence, No Hematuria, No Retention, No Other Musculoskeletal: No other, No neck pain, No shoulder pain, No arm pain, No back pain, No hand pain, No leg pain, No foot pain Skin: No Rash; Lesions (Left cheek); No Jaundice, No Bruising, No Other Objective Vitals Vital Signs Date Time Temp Pulse Resp B/P (MAP) Pulse Ox O2 Delivery O2 Flow Rate FiO2 06/23/25 21:00 97.1 85 17 94/52 (66) 98 97.1 06/23/25 08:00 Room Air* 0 21 Intake/Output Intake and Output 06/23/25 07:00 Intake Total 450 ml Balance 450 ml Intake Oral 250 ml IV Total 200 ml # Voids 1 Medications Current Medications Medications Dose Ordered Sig/Isabell Route Start Time Stop Time Status Last Admin Dose Admin Sodium Chloride 10 ml Q8HR IV 06/22/25 22:00 06/23/25 22:02 10 ML Acetaminophen/ Hydrocodone Bitart 1 tab Q4HP PRN PO 06/22/25 21:30 06/23/25 17:02 1 TAB Ondansetron HCl 4 mg Q4HP PRN IV 06/22/25 21:30 Docusate Sodium 100 mg BIDPRN PRN PO 06/22/25 21:30 Zinc Sulfate 220 mg DAILY PO 06/23/25 10:00 06/23/25 10:31 220 MG Ascorbic Acid 500 mg BID PO 06/22/25 22:00 06/23/25 22:01 500 MG Acetaminophen 650 mg Q6HP PRN PO 06/22/25 21:30 Morphine Sulfate 2 mg Q4HPRN PRN IV 06/22/25 21:30 Nitroglycerin 0.4 mg Q5MINP PRN SL 06/22/25 21:30 Morphine Sulfate 2 mg Q30M PRN IV 06/22/25 21:30 Piperacillin Sod/ Tazobactam Sod 100 ml @ 25 mls/hr Q8HR IV 06/23/25 06:00 06/23/25 21:52 25 MLS/HR Clindamycin Phosphate 50 ml @ 50 mls/hr Q8HR IV 06/23/25 22:00 06/25/25 22:50 06/23/25 21:52 50 MLS/HR Laboratory Results Laboratory Tests 06/23/25 05:17 Chemistry Test 06/23/25 05:17 Albumin 3.9 g/dL (3.2-4.8) Calcium Level 9.4 mg/dL (8.7-10.4) Total Protein 6.7 g/dL (5.7-8.2) LFT Test 06/23/25 05:17 Alanine Aminotransferase (ALT) 16 U/L (7-40) Alkaline Phosphatase 73 U/L (46-116) Aspartate Amino Transferase (AST) 15 U/L (13-40) Total Bilirubin 0.5 mg/dL (0.2-1.0) Urinalysis Test 06/22/25 13:21 Urine Test Negative (Negative) Microbiology Microbiology Date/Time Source Procedure Growth Status 06/22/25 10:40 Blood Blood Culture - Preliminary NO GROWTH AFTER 24 HOURS OF INCUBATION. Resulted Labs and/or images reviewed: Labs reviewed by me, Image(s) reviewed by me Assessment/Plan Assessment/Plan Cellulitis of periorbital region of both eyes Generalized weakness -facial cellulitis -obesity Plan: -continue IV clindamycin and Zosyn -pain management -check visual acuity q.6 hours Plan discussed with: Patient My Orders Orders - ANAI CINTRON DO Procedure Category Date Status Time Clindamycin 600mg Iv PHA 06/23/25 In Process (Cleocin Iv) 22:00 Date of Service: Jun 23, 2025 Billing Provider: ANAI CINTRON DO Common Visit Codes: [id number] INP/OBS CARE(HIGH) ANAI CINTRON DO Jun 23, 2025 23:42
[2025-06-24] VITALS (7 sets, daily range): BP systolic 91–138; BP diastolic 50–78; PULSE 67–102; RESP 17–20; TEMP 97.8–98.5; O2SAT 95–98
--- NOTE | 2025-06-24 16:12 | DVHPN2 ---
Subjective Patient states that her swelling to her face has improved. Reviewed: Care Plan, H&P, Labs, Medications, Previous Orders, Radiology Changes from previous H/P or p: No Changes General: Per HPI Eyes: No Pain, No Vision change, No Conjunctivae inflammation, No Eyelid inflammation, No Other, No Redness ENT: No Ear pain, No Ear discharge, No Nose pain, No Nose discharge, No Nose congestion, No Mouth pain, No Mouth swelling, No Throat pain, No Throat swelling; Other (Left cheek lesion) Cardiovascular: No Chest Pain, No Palpitations, No Orthopnea, No Paroxysmal Noc. Dyspnea, No Edema, No Lt Headedness, No Other Respiratory: No Cough, No Dry, No Shortness of breath, No SOB with excertion, No Wheezing, No Hemoptysis, No Pleuritic Pain, No Sputum, No Other Gastrointestinal: No Nausea, No Vomiting, No Abdominal Pain, No Diarrhea, No Constipation, No Melena, No Hematochezia, No Other Genitourinary: No Dysuria, No Frequency, No Incontinence, No Hematuria, No Retention, No Other Musculoskeletal: No other, No neck pain, No shoulder pain, No arm pain, No back pain, No hand pain, No leg pain, No foot pain Skin: No Rash; Lesions (Left cheek); No Jaundice, No Bruising, No Other Objective Vitals Vital Signs Date Time Temp Pulse Resp B/P (MAP) Pulse Ox O2 Delivery O2 Flow Rate FiO2 06/24/25 12:45 98.1 67 20 100/54 (69) 98 98.1 06/24/25 08:00 Room Air* 0 21 Intake/Output Intake and Output 06/24/25 07:00 Intake Total 2030 ml Balance 2030 ml Intake Oral 1780 ml IV Total 250 ml # Voids 5 # Bowel Movements 1 General Appearance: Alert, Oriented X3, Cooperative, No acute distress HEENT: Atraumatic, PERRLA, Other (Patient's swelling with small wound on the left cheek) Lungs: Clear to auscultation, Normal air movement Cardiovascular: Normal S1, Normal S2 Abdomen: Normal bowel sounds, No tenderness, No hepatospenomegaly Back: Flank Tenderness, Midline Tenderness Neuro: Normal speech Skin: Dry, Intact Psych/Mental Status: Mental status NL, Mood NL Medications Current Medications Medications Dose Ordered Sig/Isabell Route Start Time Stop Time Status Last Admin Dose Admin Sodium Chloride 10 ml Q8HR IV 06/22/25 22:00 06/24/25 14:12 10 ML Acetaminophen/ Hydrocodone Bitart 1 tab Q4HP PRN PO 06/22/25 21:30 06/23/25 17:02 1 TAB Ondansetron HCl 4 mg Q4HP PRN IV 06/22/25 21:30 Docusate Sodium 100 mg BIDPRN PRN PO 06/22/25 21:30 Zinc Sulfate 220 mg DAILY PO 06/23/25 10:00 06/24/25 09:43 220 MG Ascorbic Acid 500 mg BID PO 06/22/25 22:00 06/24/25 09:43 500 MG Acetaminophen 650 mg Q6HP PRN PO 06/22/25 21:30 Morphine Sulfate 2 mg Q4HPRN PRN IV 06/22/25 21:30 Nitroglycerin 0.4 mg Q5MINP PRN SL 06/22/25 21:30 Morphine Sulfate 2 mg Q30M PRN IV 06/22/25 21:30 Piperacillin Sod/ Tazobactam Sod 100 ml @ 25 mls/hr Q8HR IV 06/23/25 06:00 06/24/25 13:44 25 MLS/HR Clindamycin Phosphate 50 ml @ 50 mls/hr Q8HR IV 06/23/25 22:00 06/25/25 22:50 06/24/25 13:44 50 MLS/HR Laboratory Results Laboratory Tests 06/23/25 05:17 Urinalysis Test 06/22/25 13:21 Urine Test Negative (Negative) Microbiology Microbiology Date/Time Source Procedure Growth Status 06/22/25 10:40 Blood Blood Culture - Preliminary NO GROWTH AFTER 48 HOURS OF INCUBATION. Resulted Labs and/or images reviewed: Labs reviewed by me, Image(s) reviewed by me Assessment/Plan Assessment/Plan Impression: -facial cellulitis -obesity Plan: -continue IV clindamycin and Zosyn -pain management -check visual acuity q.6 hours Total time spent with patient discussing and formulating plan of care: 35 minutes. This medical document was created using an electronic medical record system with [employer] dictation system. Although this document has been carefully reviewed, there may still be some phonetic and typographical errors. These areas are purely typographical due to imperfections of the software programs, and do not reflect any compromise in the patient's medical care. Plan discussed with: Patient, Other (RN) Date of Service: Jun 24, 2025 Billing Provider: ANITA JACOBO NP Common Visit Codes: [id number] INP/OBS CARE(HIGH) ANITA JACOBO NP Jun 24, 2025 16:12
[2025-06-25 01:00] VITALS: BP 91/49; PULSE 76; RESP 17; TEMP 98; O2SAT 98
[2025-06-25 05:00] VITALS: BP 100/51; PULSE 68; RESP 19; TEMP 97.7; O2SAT 96
[2025-06-25 08:15] VITALS: PULSE 67; RESP 17; O2SAT 99
[2025-06-25 09:00] VITALS: BP 112/85; PULSE 67; RESP 17; TEMP 97.8; O2SAT 99
[2025-06-25] MEDS ORDERED: SACC250C PO (11:11)
[2025-06-25] MEDS ORDERED: AUG875T PO (11:11)
--- NOTE | 2025-06-25 11:16 | DVHDS2 ---
Discharge Summary Date of Admission Jun 22, 2025 at 21:20 Date of Discharge: Jun 25, 2025 Admitting Diagnosis Periorbital cellulitis Labs/Diagnostic Data: Laboratory Results Test 06/23/25 05:17 06/22/25 13:21 06/22/25 10:35 White Blood Count 9.7 10^3/uL (4.4-10.8) Red Blood Count 3.79 10^6/uL (4.0-5.20) Hemoglobin 11.0 g/dL (12.2-16.2) Hematocrit 32.4 % (36.0-46.0) Mean Corpuscular Volume 85.4 fL (80.0-100.0) Mean Corpuscular Hemoglobin 29.2 pg (28.0-32.0) Mean Corpuscular Hemoglobin Concent 34.1 g/dL (32.0-36.0) Red Cell Distribution Width 13.6 % (11.8-14.3) Platelet Count 230 10^3/uL (140-450) Mean Platelet Volume 9.3 fL (6.9-10.8) Neutrophils (%) (Auto) 85.6 % (37.0-80.0) Lymphocytes (%) (Auto) 9.2 % (10.0-50.0) Monocytes (%) (Auto) 5.1 % (0.0-12.0) Eosinophils (%) (Auto) 0.0 % (0.0-7.0) Basophils (%) (Auto) 0.1 % (0.0-2.0) Neutrophils # (Auto) 8.3 10 ^3/uL (1.6-8.6) Lymphocytes # (Auto) 0.9 10 ^3/uL (0.4-5.4) Monocytes # (Auto) 0.5 10 ^3/uL (0-1.3) Eosinophils # (Auto) 0 10 ^3/uL (0-0.8) Basophils # (Auto) 0 10 ^3/uL (0-0.2) Nucleated Red Blood Cells 0.0 % Sodium Level 140 mmol/L (136-145) Potassium Level 4.3 mmol/L (3.5-5.1) Chloride Level 107 mmol/L (98-107) Carbon Dioxide Level 25 mmol/L (20-31) Anion Gap 8 (5-15) Blood Urea Nitrogen 11 mg/dL (9-23) Creatinine 0.86 mg/dL (0.550-1.02) Glomerular Filtration Rate Calc 90 mL/min (>90) BUN/Creatinine Ratio 12.8 (10.0-20.0) Serum Glucose 168 mg/dL (74-106) Calcium Level 9.4 mg/dL (8.7-10.4) Total Bilirubin 0.5 mg/dL (0.2-1.0) Aspartate Amino Transferase (AST) 15 U/L (13-40) Alanine Aminotransferase (ALT) 16 U/L (7-40) Alkaline Phosphatase 73 U/L (46-116) Total Protein 6.7 g/dL (5.7-8.2) Albumin 3.9 g/dL (3.2-4.8) Urine Test Negative (Negative) Lactic Acid Level 1.0 mmol/L (0.4-2.0) Other Laboratory Tests 06/23/25 05:17 Brief Hx & Hospital Course: History of Present Illness The patient is a 34-year-old female who denies past medical history presented to [facility] ED for evaluation of bilateral eye swelling left worse than right. Patient reports that she was bitten by spider to the left side of her face, now swollen, redness with oozing from the bite site. Patient was seen initially at this facility and was discharged home with antibiotic regimen clindamycin with no relief. Patient was seen and evaluated in the ED, laboratory data shows WBC 9.6, hemoglobin 10.9, hematocrit 32.3, platelets 196, sodium 142, potassium 4.0, BUN 12, creatinine 1.07, GFR 90, glucose 90, calcium 9.1, lactic acid 1.0, blood pressure 110/71, heart rate 85, temperature 98.6 F, O2 saturation 97% on room air. Maxillofacial CT revealing significant left preseptal to left cheek soft tissue swelling with overlying skin thickening, small focal area of hyperattenuation extending from the left skin into the left maxillary fat and imaging findings concerning for soft tissue infection which may be dermal in origin. Patient was started on IV antibiotic regimen Zosyn, please see medication orders section in the computer. On my assessment, patient denied chest pain, no dizziness, headache, diaphoresis, shortness of breaths, no diarrhea, nausea, vomiting, fever, no chills. Patient was admitted for further evaluation and medical management. Course of hospitalization: Patient was placed on both IV clindamycin and IV Zosyn. Patient did have drainage from in apparent puncture site from left cheek. Drainage has resolved. Patient has significant improvement with her periorbital swelling. No visual disturbances noted. Patient is requesting to be discharged home today. Given significant improvement from my assessment yesterday today, patient will be discharged home and be continued on oral antibiotic therapy. She reports that she still has a previous prescription for a seven day course of clindamycin for which she will continue with the time of discharge. She will also be prescribed Augmentin 875 mg p.o. b.i.d. for additional six days. She will follow up with the discharge Clinic in one week. She is agreeable with discharge plan. All questions answered. Physical examination General: Alert and Oriented x3. No acute distress. Well-nourished. Eyes: EOMI. Anicteric. HENT: Moist mucous membranes. Lungs: Clear to auscultation bilaterally. No accessory muscle use. Cardiovascular: Regular rate and rhythm. No murmur. No JVD. Abdomen: Soft, non-tender and non-distended. No palpable masses. Extremities: No edema. Non-tender. Skin: No rashes or lesions. Warm. Neurologic: No focal neurological deficits. CN II-XII grossly intact, but not individually tested. Psychiatric: Cooperative. Appropriate mood and affect. Total time spent with patient discussing and formulating plan of care: 35 minutes. This medical document was created using an electronic medical record system with [employer] dictation system. Although this document has been carefully reviewed, there may still be some phonetic and typographical errors. These areas are purely typographical due to imperfections of the software programs, and do not reflect any compromise in the patient's medical care. Condition at Discharge: Fair Final Diagnosis/Problems List Facial cellulitis secondary to bug bite Obesity Discharge Disposition: Home Discharge Instruct/Medications Diet: Regular Activity: No Restrictions, As Tolerated Follow Up/Referral: Follow up with the discharge Clinic in one week Medications: Continue clindamycin 300 mg p.o. t.i.d. for additional six days ( Previous prescription) Augmentin 875 mg p.o. b.i.d. for six days Scheduled Amoxicillin & Pot Clavulanate (Augmentin Tablet), 875 MG PO BID Clindamycin Hcl (Clindamycin Hcl), 300 MG PO QID Escitalopram Oxalate (Escitalopram Oxalate), 1 TAB PO DAILY, (Reported) Vit W/ Ferrous Fumara ( One Daily), 1 TAB PO DAILY, (Reported) Yeast (S. Boulardii)(S. Cerevi (Florastor), 250 MG PO DAILY 36 Discharge Statement: "Patient was advised to return to the ER or call 911 if any headaches, dizziness, shortness of breath, chest pain, abdominal pain, bleeding, fevers, or worsening of medical condition. Patient was counseled about treatment plan, medications, possible side effects, patientverbalized understanding. All questions were answered to the best of my ability. This discharge took greater then 30 minutes in planning, reviewing documentation, counseling the patient, and discussing with other team members." ASSESSMENT ASSESSMENT Assessment Facial cellulitis secondary to bug bite Date of Service: Jun 25, 2025 Billing Provider: ANITA JACOBO NP Common Visit Codes: [id number] INP/OBS CARE(HIGH) ANITA JACOBO NP Jun 25, 2025 11:16
[2025-06-25 14:00] VITALS: BP 112/85; PULSE 67; RESP 17; TEMP 97.8; O2SAT 99
== END 2025-06-25 15:00 | disposition home or self-care (01) | DRG 383 ==
LOC: ER 09:44 → EDBD 09:44 → OVERFLOW 21:20 → WEST WING 23:50
PROVIDERS: ADMIT Nurse Practitioner Acute Care; ATTEND Nurse Practitioner Acute Care
DX: L03.213 Periorbital cellulitis (principal); E66.9 Obesity, unspecified; L03.211 Cellulitis of face; Z68.38 Body mass index [BMI] 38.0-38.9, adult
CPT/HCPCS: 36415; 70487; 80053; 81025; 83605; 85025; 87040; G0378; J2543; J3490